=== PATIENT | female | born 1990 | race Caucasian/White ===

== ENCOUNTER 2016-12-06 18:59 | Emergency (ER) | payer OTHER ==
[2016-12-07 01:28] LABS: HEMOGLOBIN 14.4 gm/dl (12.3-15.3); RED BLOOD COUNT 4.93 M/UL (4.00-5.10); WHITE BLOOD COUNT 24.2 K/UL (4.5-11.0)
[2016-12-07 01:42] LABS: BUN/CREATININE RATIO 18 (0-10)
== END 2016-12-07 04:00 | disposition home or self-care (01) ==
LOC: ER1 18:59
PROVIDERS: Specialist/Technologist Athletic Trainer
DX: J02.0 Streptococcal pharyngitis (principal); D72.829 Elevated white blood cell count, unspecified; F17.200 Nicotine dependence, unspecified, uncomplicated
CPT/HCPCS: 36415; 80053; 83605; 85025; 86403; 87040; 87081; 87880; 96361; 96374; 99283; J0696; J7050

== ENCOUNTER → 2017-01-29 | Outpatient (CLI) | payer OTHER | LOC: CT 10:45 | DX: R10.32 Left lower quadrant pain (principal); K42.9 Umbilical hernia without obstruction or gangrene; N20.0 Calculus of kidney | CPT/HCPCS: 74150 ==